=== PATIENT | male | born 1995 | race Caucasian/White ===

== ENCOUNTER 2018-12-15 09:03 | Emergency (ER) | payer OTHER ==
[~2018-12-15] VITALS: Ht 172.7 cm; Wt 84.1 kg
[2018-12-15 09:04] VITALS: BP 150/90
[2018-12-15] MEDS ORDERED: NAPR-50 PO (09:28)
--- NOTE | 2018-12-15 09:29 | REP ---
Clinical: Trauma. Technique: AP, lateral, bilateral oblique views right wrist. Findings: The carpal bones, surrounding osseous structures, soft tissues, and joint spaces are normal. There is no evidence for acute fracture or dislocation. No subcutaneous emphysema or radiodense foreign body. Impression: Normal wrist series. No acute fracture or dislocation Electronically Signed by Dane Gaming MD 12/15/2018 09:21 A
== END 2018-12-15 09:38 | disposition home or self-care (01) ==
LOC: M ED 09:03
DX: S63.501A Unspecified sprain of right wrist, initial encounter (principal); W01.0XXA Fall on same level from slipping, tripping and stumbling without subsequent striking against object, initial encounter; Y92.89 Other specified places as the place of occurrence of the external cause

== ENCOUNTER 2020-07-20 17:24 | Emergency (ER) | payer OTHER ==
[~2020-07-20] VITALS: Ht 172.7 cm; Wt 86.4 kg
[~2020-07-20 17:24] MED LIST: NAPR-837 PO
--- NOTE | 2020-07-20 18:17 | REPVR ---
PROCEDURE INFORMATION: Exam: XR Left Ankle Exam date and time: 07/20/2020 5:59 PM Age: 24 years old Clinical indication: Other: Trauma TECHNIQUE: Imaging protocol: XR Left ankle. Views: 3 or more views. COMPARISON: No relevant prior studies available. FINDINGS: Bones/joints: Vertical fracture through the distal tibia extends to the articular surface. Soft tissues: Normal. IMPRESSION: Vertical fracture through the distal tibia extends to the articular surface. Electronically signed by: Omer Toro On 07/20/2020 18:16:40 PM
--- NOTE | 2020-07-20 18:20 | REPVR ---
PROCEDURE INFORMATION: Exam: XR Right Ankle Exam date and time: 07/20/2020 5:59 PM Age: 24 years old Clinical indication: Other: Traum; Additional info: Trauma TECHNIQUE: Imaging protocol: XR Right ankle. Views: 3 or more views. COMPARISON: No relevant prior studies available. FINDINGS: Bones/joints: Fractured posterior malleolus. Otherwise unremarkable. Soft tissues: Soft tissue edema at the level of the medial malleolus. IMPRESSION: Soft tissue edema at the level of the medial malleolus. Fracture posterior malleolus. Electronically signed by: Omer Toro On 07/20/2020 18:20:21 PM
[2020-07-20 19:08] VITALS: BP 133/80
[2020-07-20] MEDS ORDERED: NORC1TAB7 PO (19:11)
[2020-07-20] MEDS ORDERED: NORCO, ANEXSIA 5/325MG TABLET (HYDROcodone/ACETAMINOPHEN) PO ONE (19:15)
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
== END 2020-07-20 19:31 | disposition home or self-care (01) ==
LOC: M ED 17:24
DX: S82.391A Other fracture of lower end of right tibia, initial encounter for closed fracture (principal); S82.392A Other fracture of lower end of left tibia, initial encounter for closed fracture; V86.56XA Driver of dirt bike or motor/cross bike injured in nontraffic accident, initial encounter; Y92.89 Other specified places as the place of occurrence of the external cause; Z88.0 Allergy status to penicillin; Z91.030 Bee allergy status